=== PATIENT | female | born 1995 | race Caucasian/White ===

== ENCOUNTER → 2017-06-04 | Outpatient (CLI) | payer OTHER ==
[~2017-06-04] MED LIST: CETI10CA8 PO; CHOL10005 PO; NAPR375T44 PO; SPIR25TA78 PO; bcp
== END ==
LOC: LAB 14:53
PROVIDERS: ATTEND Emergency Medicine Sports Medicine
DX: M79.606 Pain in leg, unspecified (principal)
CPT/HCPCS: 36415; 85379